=== PATIENT | female | born 1995 | race Caucasian/White ===

== ENCOUNTER 2018-08-04 18:39 | Emergency (ER) | payer SELFPAY ==
[2018-08-04 19:52] LABS: BHCG - Serum Negative (NEGATIVE); Pregs Control Background? CLEAR/WHITE (CLR/WHITE); Pregs Control Bar Appear? YES (CONTROL BAR)
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
== END 2018-08-04 20:45 | disposition home or self-care (01) ==
LOC: ERS 18:39
DX: M54.5 Low back pain (principal); F17.210 Nicotine dependence, cigarettes, uncomplicated; V89.2XXA Person injured in unspecified motor-vehicle accident, traffic, initial encounter
CPT/HCPCS: 36415; 72040; 72100; 84703